=== PATIENT | female | born 1995 | race Caucasian/White ===

== ENCOUNTER 2022-08-01 16:42 | Inpatient (IN) | payer OTHER ==
[2022-08-01 17:20] LABS: Hemoglobin 13.9 g/dL (12.0-15.5); Mean Corpuscular HGB CONC 34.2 g/dL (32.0-36.0); Mean Corpuscular Hemoglobin 29.3 pg (27.0-33.0); Mean Corpuscular Volume 85.9 fl (81.6-98.3); Mean Platelet Volume 9.7 fl (7.4-10.4); Platelet Count 211 10x3/uL (150-450); RBC Distribution Width 12.4 % (11.5-14.5); Red Blood Cell (RBC) Count 4.74 10x6/uL (3.90-5.03); White Blood Cell (WBC) Count 8.1 10x3/uL (3.5-10.5)
[2022-08-01 17:31] LABS: ALT (SGPT) 17 U/L (8-55); AST (SGOT) 16 U/L (5-34); Albumin 3.9 g/dL (3.5-5.0); Alkaline Phosphatase 61 U/L (40-110); Anion Gap 13 mmol/L (10-20); BUN (Urea Nitrogen) 5 mg/dL (7.0-18.7); Bilirubin, Total 0.5 mg/dL (0.2-1.2); Calc. Creatinine Clearance 0 mL/min (70-130); Calcium 9.1 mg/dL (7.8-10.44); Carbon Dioxide 20 mmol/L (22-29); Chloride 106 mmol/L (98-107); Estimated GFR 126; Globulin 3.3 g/dL (2.4-3.5); Glucose 98 mg/dL (70-105); Magnesium 1.9 mg/dL (1.6-2.6); Potassium 3.3 mmol/L (3.5-5.1); Protein, Total 7.2 g/dL (6.0-8.3); Sodium 136 mmol/L (136-145)
[2022-08-01 18:32] LABS: #Monocytes 0.3 10x3/uL (0.0-1.1); #Neutrophils 5.8 10x3/uL (1.5-8.4); %Basophils 0.2 % (0.0-2.0); %Eosinophils 0.4 % (0.0-6.0); %Lymphocytes 21.7 % (18.0-47.0); %Monocytes 4.2 % (0.0-10.0); %Neutrophils 72.9 % (40.0-75.0)
[2022-08-01] MEDS ORDERED: Ondansetron PF 4 MG/2 ML Vial ONE (18:38)
[2022-08-01] MEDS ORDERED: Calcium Carbonate 500 MG ChewTAB PO PRN (19:33)
[2022-08-01] MEDS ORDERED: Acetaminophen 650 MG Suppository PR PRN (19:33)
[2022-08-01] MEDS ORDERED: Acetaminophen 325 MG TAB PO PRN (19:33)
[2022-08-01 19:42] LABS: SARS-CoV-2 NAA Rapid Test Not Detected (NotDetected)
[2022-08-01] MEDS ORDERED: Potassium Chloride 20 MEQ in Premix Bag 1 BAG IVPB SCH (21:00)
[2022-08-01] MEDS: methylPREDNISolone Sod Succ 40 MG VIAL IVP SCH (22:01)
[2022-08-01] MEDS: Lactated Ringer's 1,000 ML IV SCH (22:07)
[2022-08-01 22:19] VITALS: BMI 27.4
[2022-08-02] MEDS: Ondansetron PF 4 MG/2 ML Vial IVP PRN ×4 (00:53→19:42)
[2022-08-02 05:01] LABS: Anion Gap 14 mmol/L (10-20); BUN (Urea Nitrogen) Less than 4 mg/dL (7.0-18.7); Calc. Creatinine Clearance 170 mL/min (70-130); Calcium 8.7 mg/dL (7.8-10.44); Carbon Dioxide 17 mmol/L (22-29); Chloride 109 mmol/L (98-107); Estimated GFR 130; Glucose 89 mg/dL (70-105); Sodium 136 mmol/L (136-145)
[2022-08-02] MEDS: methylPREDNISolone Sod Succ 40 MG VIAL IVP SCH ×3 (05:58→21:08)
[2022-08-02] MEDS: Lactated Ringer's 1,000 ML IV SCH ×3 (05:58→21:40)
[2022-08-02] MEDS ORDERED: Famotidine/PF 20 mg/2ml Vial SLOW IVP SCH (09:00)
[2022-08-02] MEDS ORDERED: Prenatal Vitamin 1 TAB PO SCH (09:00)
[2022-08-02] MEDS ORDERED: Famotidine 20 MG TAB PO SCH (09:00)
[2022-08-02] MEDS ORDERED: Multivit, Adult Inj 10 ML VIAL IV SCH (09:30)
[2022-08-02] MEDS: Thiamine HCl 200 MG/2 ML VIAL SLOW IVP SCH (11:08)
[2022-08-02] MEDS: Metoclopramide HCl 10 MG/2 ML VIAL IVP SCH ×2 (13:41→21:08)
[2022-08-02] MEDS: Famotidine/PF 20 mg/2ml Vial SLOW IVP SCH (21:08)
[2022-08-03] MEDS: Ondansetron PF 4 MG/2 ML Vial IVP PRN ×3 (04:08→17:51)
[2022-08-03] MEDS: Metoclopramide HCl 10 MG/2 ML VIAL IVP SCH ×2 (06:02→14:22)
[2022-08-03] MEDS: Lactated Ringer's 1,000 ML IV SCH ×3 (06:02→22:00)
[2022-08-03] MEDS: methylPREDNISolone Sod Succ 40 MG VIAL IVP SCH ×3 (06:02→22:01)
[2022-08-03] MEDS: Famotidine/PF 20 mg/2ml Vial SLOW IVP SCH (08:23)
[2022-08-03] MEDS: Thiamine HCl 200 MG/2 ML VIAL SLOW IVP SCH (11:44)
[2022-08-03] MEDS: Metoclopramide HCl 10 MG TAB PO SCH (21:06)
[2022-08-03] MEDS: Famotidine 20 MG TAB PO SCH (21:06)
[2022-08-04] MEDS: Ondansetron ODT 4 MG TAB PO SCH ×2 (00:09→06:09)
[2022-08-04] MEDS: Metoclopramide HCl 10 MG TAB PO SCH (08:08)
[2022-08-04] MEDS: Famotidine 20 MG TAB PO SCH (08:08)
[2022-08-04 09:27] VITALS: BP 108/61; TEMP 98.4
== END 2022-08-04 11:50 | disposition home or self-care (01) | DRG 833 ==
LOC: CSHERS 16:42 → CSHPP 21:10 → OBSVTOIN 08-03 18:58
PROVIDERS: ADMIT Family Medicine; ATTEND Family Medicine
DX: O21.1 Hyperemesis gravidarum with metabolic disturbance (principal); F41.9 Anxiety disorder, unspecified; O99.342 Other mental disorders complicating pregnancy, second trimester; R00.0 Tachycardia, unspecified; R55 Syncope and collapse; O99.891 Other specified diseases and conditions complicating pregnancy; Z3A.16 16 weeks gestation of pregnancy; Z98.890 Other specified postprocedural states; Z90.49 Acquired absence of other specified parts of digestive tract; Z20.822 Contact with and (suspected) exposure to COVID-19
CPT/HCPCS: 36415; 80048; 80053; 83735; 85025; 93005; 96361; 96374; J2405; J2765; J2920; J3411; J3480; J7120; Q0162; S0028; U0002